=== PATIENT | male | born 1985 | race Two or more races ===

== ENCOUNTER 2019-03-29 22:57 | Emergency (ER) | payer OTHER ==
[~2019-03-29] VITALS: Ht 170.2 cm; Wt 70.3 kg
[2019-03-29 23:06] VITALS: BP 126/72
[2019-03-29] MEDS ORDERED: PANTOPRAZOLE 40 MG TABLET.DR PO ONE (23:56)
[2019-03-30] MEDS ORDERED: PANTOPRAZOLE 40 MG TABLET.DR PO ONE
== END 2019-03-30 00:31 | disposition home or self-care (01) ==
LOC: ER 23:02
DX: R07.89 Other chest pain (principal); Z60.2 Problems related to living alone